=== PATIENT | male | born 1950 | race American Indian/Alaskan Native ===

== ENCOUNTER 2019-09-16 06:20 | Day surgery (SDC) | payer MEDICARE ==
[~2019-09-16 06:20] MED LIST: SODIUM CHLORIDE 0.9% 1000 ML 1,000 ML IV SCH; ceFAZolin/Water 2 GM/20 ML 2 GM/20 ML SYRINGE IV NR; fentaNYL 100 MCG/2 ML INJ IV PRN
[2019-09-16 07:32] LABS: Basophils % (Auto) 0.8 % (0.0-1.8); Eosinophils # (Auto) 0.4 K/mm3 (0.0-0.4); Eosinophils % (Auto) 7.9 % (0.0-4.3); Hemoglobin 9.8 gm/dl (11.8-15.2); Lymphocytes # (Auto) 0.7 K/mm3 (1.2-5.4); Mean Corpuscular HGB Conc 32 % (32-34); Mean Corpuscular Volume 92 fl (84-94); Monocytes # (Auto) 0.5 K/mm3 (0.0-0.8); Monocytes % (Auto) 8.5 % (0.0-7.3); Platelet Count 305 K/mm3 (140-440); Red Blood Count 3.37 M/mm3 (3.65-5.03); Red Cell Distribution Width 16.7 % (13.2-15.2)
[2019-09-16 07:34] LABS: BUN/Creatinine Ratio 16; Blood Urea Nitrogen 13 mg/dL (9-20); Calcium 8.8 mg/dL (8.4-10.2); Hemolysis Index 11
[2019-09-16] MEDS ORDERED: fentaNYL 100 MCG/2 ML INJ IV PRN (07:37)
--- NOTE | 2019-09-16 07:37 | Anesthesia Day of Surgery ---
Anesthesia Day of Surgery - Day of Surgery Patient Examined: Yes Patient H&P Reviewed: Yes Patient is NPO: Yes
--- NOTE | 2019-09-16 07:37 | Anesthesia Consultation ---
Anesthesia Consult and Med Hx Date of service: 09/16/19 - Airway Anesthetic Teeth Evaluation: Good ROM Head & Neck: Adequate Mental/Hyoid Distance: Adequate Mallampati Class: Class III Intubation Access Assessment: Probably Good (previously easy intubation) - Pulmonary Exam CTA: Yes - Cardiac Exam Cardiac Exam: RRR - Pre-Operative Health Status ASA Pre-Surgery Classification: ASA4 Proposed Anesthetic Plan: MAC Nerve Block: supraclavicular - Pulmonary Hx Smoking: Yes (Former) Hx Respiratory Symptoms: Yes (hx PNA in 07/16 which has mostly resolved) SOB: No Home Oxygen Therapy: Yes (intermittent O2 at rehab facility) - Cardiovascular System Hx Hypertension: Yes Hx Heart Attack/AMI: Yes (06/2018) Hx Percutaneous Transluminal Coronary Angioplasty (PTCA): No Hx Pacemaker: No Hx Internal Defibrillator: No Hx Peripheral Vascular Disease: Yes - Central Nervous System CVA: No Hx Psychiatric Problems: Yes (cognitive impairment) - Gastrointestinal Hx Gastroesophageal Reflux Disease: No - Endocrine Hx End Stage Renal Disease: Yes (last HD 09/15/2019) Hx Liver Disease: No Hx Non-Insulin Dependent Diabetes: Yes Hx Thyroid Disease: No - Hematic Hx Anemia: Yes - Other Systems Hx Obesity: No - Additional Comments Anesthesia Medical History Comments: No hx anesthetic complications. Prolonged hospitalization from 07/16-08/17 complicated by septic shock, cardiac arrest, aspiration PNA, and renal failure. Now at rehab facility. EF 35% during hospitalization. Baseline mentation conversant, cooperative but intermittently disoriented.
[2019-09-16] MEDS ORDERED: LIDOCAINE (1%) 10 MG/1 ML VIAL 20 ML MDV ONE ×2 (07:39→07:42)
[2019-09-16] MEDS ORDERED: SODIUM CHLORIDE 0.9% 250ML 0 ML ONE (07:40)
[2019-09-16] MEDS ORDERED: SODIUM CHLORIDE 0.9% 500 ML 500 ML ONE (07:40)
[2019-09-16] MEDS ORDERED: SODIUM CHLORIDE P/F VIAL 10 ML 0 ML ONE (07:40)
[2019-09-16] MEDS ORDERED: HEPARIN 10,000 UNITS/10 ML VIAL ONE (07:40)
[2019-09-16] MEDS ORDERED: BUPIVACAINE/PF (0.5%) 5 MG/1 ML 30 ML VIAL INFILTRATI ONE ×2 (07:41→07:42)
[2019-09-16] MEDS ORDERED: LIDOCAINE MPF (2%) 20 MG/1 ML VIAL 5 ML ONE (07:47)
[2019-09-16] MEDS ORDERED: fentaNYL 100 MCG/2 ML INJ ONE (07:47)
[2019-09-16] MEDS ORDERED: propofoL 200 MG/20 ML VIAL IV ONE (07:47)
[2019-09-16] MEDS ORDERED: PHENYLEPHRINE/NS 1,000 MCG/10 ML SYRINGE (OR USE) IV ONE (07:47)
[2019-09-16] MEDS ORDERED: ONDANSETRON 4 MG/2 ML INJ ONE (07:47)
[2019-09-16] MEDS ORDERED: GLYCOPYRROLATE 0.4 MG/2 ML INJ ONE (07:47)
[2019-09-16] MEDS ORDERED: SUCCINYLCHOLINE CHLORIDE 200 MG/10 ML INJ MDV ONE (07:47)
[2019-09-16] MEDS ORDERED: dexAMETHasone 20 MG/5 ML VIAL ONE (07:47)
[2019-09-16] MEDS ORDERED: SODIUM CHLORIDE P/F VIAL 10 ML 10 ML ONE (08:59)
[2019-09-16] MEDS ORDERED: SODIUM CHLORIDE 0.9% 250ML 250 ML ONE (08:59)
[2019-09-16] MEDS ORDERED: rifAMPin 600 MG VIAL ONE (08:59)
[2019-09-16] MEDS ORDERED: HEPARIN 10,000 UNITS/10 ML VIAL IV ONE (09:40)
[2019-09-16] MEDS ORDERED: rifAMPin 600 MG VIAL IV ONE (09:41)
[2019-09-16] MEDS ORDERED: SODIUM CHLORIDE 0.9% 250 ML IVPB IV ONE (09:42)
[2019-09-16] MEDS ORDERED: SODIUM CHLORIDE 0.9% P/F 10 ML VIAL INFILTRATI ONE (09:43)
[2019-09-16] MEDS ORDERED: SODIUM CHLORIDE 0.9% 500 ML IVPB IRRIGATION ONE (09:43)
--- NOTE | 2019-09-16 10:29 | Short Stay Summary ---
Short Stay Documentation Date of service: 09/16/19 Narrative H&P: See H&P - History H&P: obtained from office - Allergies and Medications Current Medications: Allergies adhesive Allergy (Verified 09/10/19 12:47) Rash citrus fruit Allergy (Uncoded 04/26/13 21:24) Rash Home Medications Medication Instructions Recorded Confirmed Last Taken Type Epoetin Wu 20,000 Unit [Procrit] 20,000 unit IV MALLORY vial 08/06/19 09/16/19 09/15/19 09:00 Rx Famotidine [Pepcid] 20 mg PO DAILY tablet 08/06/19 09/16/19 09/15/19 09:00 Rx Insulin Glargine [Lantus VIAL] 5 units SUB-Q QHS #30 units 08/06/19 09/16/19 09/15/19 20:00 Rx Lipase/Protease/Amylase [Pancreaze 1 each FEEDTUBE PRN PRN capsule 08/06/19 09/16/[address] 10,500 Unit] Lispro Insulin [HumaLOG] 0 unit SUB-Q Q6HR units 08/06/19 09/16/19 Unknown Rx Min Oil/Petrolatum [Artificial 1 applic OU Q4H PRN tube 08/06/19 09/16/19 Unknown Rx Tears Ophth Oint] Petrolatum,White [Vaseline Lip 1 applic TP Q2H PRN tube 08/06/19 09/16/19 Unknown Rx Therapy] Scopolamine [Transderm-Scop] 1 each TD Q3D #10 patch 08/06/19 09/16/19 09/14/19 09:00 Rx amLODIPine 5 mg FEEDTUBE QDAY #30 tablet 08/06/19 09/16/19 09/15/19 09:00 Rx Active Medications Fentanyl (Sublimaze) 100 mcg IV ONCE PRN PRN Reason: sedation for nerve block Last Admin: 09/16/19 07:46 Dose: 100 mcg Documented by: Fentanyl (Sublimaze) 50 mcg IV Q5MIN PRN PRN Reason: Pain , Severe (7-10) Stop: 09/16/19 22:00 Sodium Chloride (Nacl 0.9% 1000 Ml) 1,000 mls @ 42 mls/hr IV DIRECT OLILE Last Admin: 09/16/19 07:20 Dose: 42 mls/hr Documented by: Cefazolin Sodium (Ancef/Sterile Water 2 Gm/20 Ml) 2 gm in 20 mls @ 80 mls/hr IV PREOP NR; Protocol Stop: 09/16/19 23:59 - Brief post op/procedure progress note Date of procedure: 09/16/19 Pre-op diagnosis: End-Stage Renal Disease Post-op diagnosis: same Procedure: Creation of Left Brachial Artery to Axillary Vein Arteriovenous Graft with 7 mm Bovine Artegraft Anesthesia: regional Surgeon: ANTHONY JACOBS Estimated blood loss: minimal Pathology: none Condition: stable - Disposition Condition at discharge: Good Disposition: [id number]/[place]-[facility] Short Stay Discharge Plan Activity: other (No heavy lifting with left arm) Wound: open to air, keep clean and dry, other (Okay to wash the wound with soap and water but do not soak in water) Follow up with: ANTHONY JACOBS MD [Staff Physician] - 14 Days Prescriptions: HYDROcodone/APAP 7.5-325 [[place] 7.5/325] 1 each PO Q6HR PRN #40 tablet PRN Reason: Pain
--- NOTE | 2019-09-16 10:31 | Operative Report ---
Operative Report Operative Report: Date of procedure: 09/16/2019 Pre-operative diagnosis: End-Stage Renal Disease Post-operative diagnosis: Same Procedure(s): 1. Creation of Left Brachial Artery to Axillary Vein AV Graft with 7 mm Bovine Graft Surgeon: Benjamin Del Valle MD Lease Administration Analyst: None Anesthesia: General Endotracheal Anesthesia EBL: Minimal Counts: Correct Complications: None Condition: Stable Findings: Successful Creation of Left Arm AV Graft With Palpable Thrill in the Graft and Palpable Radial Pulse at the Completion of the Case. Specimen: None Indication: The patient is a 69-year-old male with a history of end-stage renal disease who is currently on hemodialysis through a left internal jugular permacath. He is in need of long-term dialysis access and requires creation of an AV graft. He and his family were given the risk, benefits, and alternative procedures and they consented to the procedure. Description of Procedure: The patient was brought to the operating room and laid in supine position after general endotracheal anesthesia was achieved the left arm was prepped and draped in normal sterile fashion. A longitudinal incision was made on the medial aspect of the arm just proximal to the antecubital crease and carried down to the brachial artery using sharp dissection. The brachial artery was dissected out circumferentially both proximally and distally and controlled with vessel loops. A second incision was created in longitudinal fashion on the medial aspect of the arm just distal to the axillary crease and carried down to the axillary vein using sharp dissection. Axillary vein was dissected out circumferentially and controlled with a vessel loop. I then used a Stacey-Wick tunneler to tunnel from the brachial artery incision to the axillary vein incision and then put an 7 mm bovine through the tunnel. I infused with heparinized saline to ensure that it was not twisted or kinked. I put the brachial artery vessel loops on tension controlling the flow and then created an arteriotomy using an 11 blade and Mayers scissors. I beveled the graft and created an end-to-side anastomosis using 6-0 Prolene running fashion. I clamped the graft just proximal to the anastomosis and then released the vessel loops restoring flow in the brachial artery. I placed quick clot in incision to achieve hemostasis. I cut the proximal end of the graft to the appropriate length and beveled the graft in preparation for a venous anastomosis. I controlled the axillary vein a Satinsky clamp and created a venotomy using an 11 blade and Mayers scissors. I created an end to side anastomosis using a 6-0 Prolene in running fashion. Prior to completing the anastomosis I flushed the graft to ensure there was no thrombus and then completed the anastamosis. I released all clamps allowing flow into the AV graft which had an excellent thrill. I packed the wound with quick clot to achieve hemostasis. I anesthetized both wounds with 0.5% Marcaine and then closed both wounds in 2 layers using 3-0 Vicryl in running fashion in the deep dermal layer and 4-0 Monocryl in running fashion the subcuticular layer. I dressed both wounds with Dermabond. The patient tolerated the procedure well all sponge needle and instrument counts were correct the patient was taken to recovery in stable condition.
--- NOTE | 2019-09-16 12:01 | Post Anesthesia Evaluation ---
- Post Anesthesia Evaluation Patient Participated: Yes Airway Patent: Yes Stable Respiratory Function: Yes Nausea/Vomiting: No Temp > 96.8F: Yes Pain Manageable: Yes Adequeate Hydration: Yes Anesthesia Complications: No Other Comments: Patient alert, oriented to self, moves all extremities freely (except LUE 2/2 nerve block), pain well controlled.
[2019-09-16 16:36] VITALS: BP 110/75
== END 2019-09-16 13:10 ==
LOC: OR 06:20
PROVIDERS: ATTEND Surgery Vascular Surgery
DX: I12.0 Hypertensive chronic kidney disease with stage 5 chronic kidney disease or end stage renal disease (principal); E11.22 Type 2 diabetes mellitus with diabetic chronic kidney disease; N18.6 End stage renal disease; D64.9 Anemia, unspecified; G93.41 Metabolic encephalopathy; E11.51 Type 2 diabetes mellitus with diabetic peripheral angiopathy without gangrene; I73.9 Peripheral vascular disease, unspecified; Z99.2 Dependence on renal dialysis; Z88.8 Allergy status to other drugs, medicaments and biological substances; Z83.3 Family history of diabetes mellitus; Z79.899 Other long term (current) drug therapy; Z79.4 Long term (current) use of insulin; Z87.891 Personal history of nicotine dependence; Z98.42 Cataract extraction status, left eye; Z98.890 Other specified postprocedural states
CPT/HCPCS: 36415; 36830; 80048; 82962; 85025; C1768; J0330; J0690; J1100; J1644; J2370; J2405; J2704; J3010; J3490; J7030; J7040; J7050